=== PATIENT | female | born 1980 | race Two or more races ===

== ENCOUNTER 2020-12-31 06:18 | Inpatient (IN) | payer OTHER ==
[~2020-12-31] VITALS: Ht 160 cm; Wt 79.8 kg
[2020-12-31] MEDS ORDERED: PRENATAL CAPLE1 EAC1 PO (09:36)
[2020-12-31] MEDS ORDERED: IRON18 MG PO (09:38)
[2020-12-31] MEDS ORDERED: PROTONIX40 MG PO (09:38)
== END 2021-01-02 15:56 | disposition home or self-care (01) | DRG 807 ==
LOC: LDR 06:18 → OB/GYN 06:18
PROVIDERS: ADMIT Specialist; ATTEND Specialist
PROC: 10E0XZZ Delivery of Products of Conception, External Approach (ICD-10-PCS; principal; 2020-12-31)
PROC: 0KQM0ZZ Repair Perineum Muscle, Open Approach (ICD-10-PCS; 2020-12-31)
PROC: 4A1HXFZ Monitoring of Products of Conception, Cardiac Rhythm, External Approach (ICD-10-PCS; 2020-12-31)
PROC: 3E033VJ Introduction of Other Hormone into Peripheral Vein, Percutaneous Approach (ICD-10-PCS; 2020-12-31)
PROC: 10907ZC Drainage of Amniotic Fluid, Therapeutic from Products of Conception, Via Natural or Artificial Opening (ICD-10-PCS; 2020-12-31)
DX: O70.1 Second degree perineal laceration during delivery (principal); Z37.0 Single live birth; Z3A.39 39 weeks gestation of pregnancy; Z20.822 Contact with and (suspected) exposure to COVID-19